=== PATIENT | male | born 1980 | race Caucasian/White ===

== ENCOUNTER 2021-08-01 00:12 | Emergency (ER) | payer OTHER ==
[~2021-08-01 00:12] MED LIST: FLOMAX0.4 MG PO; IBUPROFEN600 MG PO; PERCOCET 5/325 T1 EA PO; ZOFRAN ODT4 MG PO
[2021-08-01 01:17] LABS: HEMOGLOBIN 15.1 gm/dl (14.0-17.5); RED BLOOD COUNT 5.26 M/UL (4.20-5.50); WHITE BLOOD COUNT 16.3 K/UL (4.5-11.0)
[2021-08-01 01:30] LABS: BUN/CREATININE RATIO 15 (0-10)
== END 2021-08-01 02:20 | disposition left against medical advice (07) ==
LOC: ER1 00:12
PROVIDERS: Emergency Medicine
DX: R10.811 Right upper quadrant abdominal tenderness (principal); R10.813 Right lower quadrant abdominal tenderness; F17.210 Nicotine dependence, cigarettes, uncomplicated
CPT/HCPCS: 80053; 83690; 85025; 99283; Q9967